=== PATIENT | male | born 1950 | race Caucasian/White ===

== ENCOUNTER 2016-09-16 19:55 | Emergency (ER) | payer MEDICARE, OTHER ==
--- NOTE | 2016-09-16 20:35 | EDM.PDOC ---
ED HISTORY OF PRESENT ILLNESS - General Chief Complaint: Respiratory Problem Stated Complaint: COUGH/CONGESTION Time Seen by Provider: 09/16/16 20:28 Source: Reports: Patient, RN notes reviewed History Limitations: Reports: No limitations - History of Present Illness INITIAL COMMENTS - FREE TEXT/NARRATIVE: 66-year-old gentleman presents emergency department today with complaint of cough chest congestion he states been ill for about a week initially started in his head and then migrated down into his chest he does have extensive coronary artery disease history but denies any specific chest pain or pressure he is producing yellow brownish sputum - Related Data Allergies/ADRs: Allergies Allergy/AdvReac Type Severity Reaction Status Date / Time morphine Allergy Headache Verified 09/22/14 12:19 Home Meds: Home Meds Carvedilol 25 mg PO BID 08/30/14 [History] Clopidogrel [Plavix] 75 mg PO DAILY 08/30/14 [History] Ezetimibe [Zetia] 10 mg PO DAILY 08/30/14 [History] Lisinopril 5 mg PO BID 08/30/14 [History] Pantoprazole [Protonix] 40 mg PO BEDTIME 08/30/14 [History] Spironolactone [Aldactone] 25 mg PO DAILY 08/30/14 [History] Warfarin [Coumadin] 5 mg PO ASDIRECTED 08/30/14 [History] atorvaSTATin [Lipitor] 80 mg PO BEDTIME 08/30/14 [History] Furosemide [Lasix] 20 mg PO DAILY PRN 09/22/14 [History] Nitroglycerin 0.4 mg SL ASDIRECTED 09/22/14 [History] Warfarin [Coumadin] 2.5 mg PO ASDIRECTED 09/22/14 [History] Past Medical History Cardiovascular History: Reports: Angina, Automatic implantable cardioverter defibrillators, Bypass, CAD, Cardiomyopathy, High cholesterol, Hypertension, [place] , Pacemaker, Stents Respiratory History: Reports: Intubation, previous Gastrointestinal History: Reports: GERD Musculoskeletal History: Reports: Fracture Neurological History: Reports: CVA, TIA Endocrine/Metabolic History: Reports: Obesity/BMI 30+ - Infectious Disease History Infectious Disease History: Reports: C-difficile, Measles, Mumps - Past Surgical History Cardiovascular Surgical History: Reports: AICD, Carotid stents, Coronary artery bypass, Coronary artery stent, Pacer, Percutaneous transluminal angioplasty GI Surgical History: Reports: Colonoscopy, EGD Social & Family History - Tobacco Use Smoking Status *Q: Never Smoker Second Hand Smoke Exposure: No - Caffeine Use Caffeine Use: Reports: Soda - Alcohol Use Days Per Week of Alcohol Use: 7 Number of Drinks Per Day: 2 Total Drinks Per Week: 14 - Recreational Drug Use Recreational Drug Use: No ED ROS GENERAL - Review of Systems Review Of Systems: See Below Constitutional: Reports: fever (Feverish at home) HEENT: Reports: No symptoms Respiratory: Reports: Shortness of Breath, Cough, Sputum. Denies: Wheezing Cardiovascular: Reports: Dyspnea on exertion. Denies: Chest pain GI/Abdominal: Reports: No symptoms : Reports: no symptoms Musculoskeletal: Reports: no symptoms Skin: Reports: no symptoms Neurological: Reports: No Symptoms ED EXAM, GENERAL - Physical Exam Exam: See Below Free Text/Narrative:: General: Male, not in any distress, alert and oriented x3 HEENT: head is atraumatic normocephalic, eyes pupils equal round reactive to light, sclera clear no conjunctivitis appreciated. Ears tympanic membranes clear and colon landmarks and light reflex are present bilaterally canals are clear. Nose no septal deviation, nares are clear, no blood present. Mouth mucosa is moist and pink no erythema or exudate noted in soft palate, tongue is midline uvula is midline, dentition is intact. Neck: Supple no thyromegaly no tracheal deviation. Nodes: Cervical nodes subclavicular nodes nontender no palpable lymphadenopathy noted. Lungs: clear to auscultation bilaterally with symmetrical respirations, no adventitious noise appreciated. CV: Regular rate and rhythm S1 and S2 appreciated no murmurs rubs or gallops noted. Abdomen: Soft, nontender, no palpable masses or organomegaly appreciated, no distention no guarding bowel sounds are present, . Course - Vital Signs Last Recorded V/S: Last Vital Signs Temp 98.3 F 09/16/16 20:08 Pulse 89 09/16/16 20:08 Resp 15 09/16/16 20:08 BP 143/97 H 09/16/16 20:08 Pulse Ox 96 09/16/16 20:08 - Orders/Labs/Meds Orders: Active Orders 24 hr Category Date Time Status Chest 2V [CR] Urgent Exams 09/16/16 20:31 Taken Labs: Laboratory Tests 09/16/16 09/16/16 09/16/16 Range/Units 20:44 20:44 20:44 WBC 7.4 (4.5-11.0) K/uL RBC 4.88 (4.30-5.90) M/uL Hgb 15.4 H (12.0-15.0) g/dL Hct 45.2 (40.0-54.0) % MCV 93 (80-98) fL MCH 32 H (27-31) pg MCHC 34 (32-36) % Plt Count 108 L (150-400) K/uL Neut % (Auto) 64 (36-66) % Lymph % (Auto) 18 L (24-44) % [place] % (Auto) 14 H (2-6) % Eos % (Auto) 3 (2-4) % Baso % (Auto) 1 (0-1) % PT 21.6 H (9.5-12.0) sec INR 1.99 H (0.80-1.20) Sodium 138 L (140-148) mmol/L Potassium 4.4 (3.6-5.2) mmol/L Chloride 104 (100-108) mmol/L Carbon Dioxide 30 (21-32) mmol/L Anion Gap 8.4 (5.0-14.0) mmol/L BUN 21 H (7-18) mg/dL Creatinine 1.2 (0.8-1.3) mg/dL Est Cr Clr Drug Dosing 63.62 mL/min Estimated GFR (MDRD) > 60 (>60) Glucose 120 H (74-106) mg/dL Calcium 8.3 L (8.5-10.1) mg/dL Total Bilirubin 0.8 (0.2-1.0) mg/dL AST 20 (15-37) U/L ALT 25 (12-78) U/L Alkaline Phosphatase 106 (46-116) U/L Troponin I < 0.017 (0.000-0.056) ng/mL Total Protein 7.7 (6.4-8.2) g/dL Albumin 3.8 (3.4-5.0) g/dL Globulin 3.9 H (2.3-3.5) g/dL Albumin/Globulin Ratio 1.0 L (1.2-2.2) Departure - Departure Time of Disposition: 21:54 Disposition: Home, Self-Care 01 Condition: good Clinical Impression: Bronchitis Forms: ED Department Discharge Additional Instructions: Take full course of antibiotics, use the Tessalon Perles as needed help suppress the cough Please followup with your primary care provider in 3-5 days if not better, please call return to the emergency department with worsening of symptoms. - My Orders Last 24 Hours: My Active Orders 09/16/16 20:31 Chest 2V [CR] Urgent - Assessment/Plan Last 24 Hours: My Active Orders 09/16/16 20:31 Chest 2V [CR] Urgent Plan: Assessment Acuity = acute Site and laterality = bronchitis complicated patient with known coronary artery disease as well as history of CVA on chronic anticoagulation Etiology = suspicious for bacterial cause Manifestations = none Location of injury = home Lab values = CBC unremarkable INR therapeutic 1.99 sodium low at 138 consistent hyponatremia, chest x-ray I did review films myself I cannot appreciate any acute process, the official read from radiology is pending Plan Given his history elected to treat empirically with azithromycin five-day course and Tessalon Perles to help suppress the cough him followup with his primary care in 3-5 days if no improvement. Patient was in agreement with the plan all questions were answered, they were instructed to return to the emergency department or call for worsening symptoms. This note was dictated using [employer] voice recognition software please call with any questions.
[2016-09-16 21:56] VITALS: BP 140/98
--- NOTE | 2016-09-17 08:59 | CR ---
Two-view chest Comparison: August 2014. There is a cardiac pacemaker on the left with 2 intact leads. The heart and vascular structures are within normal limits. There are no infiltrates or effusions. Impression: 1. Stable exam. No acute findings.
== END 2016-09-16 22:09 | disposition home or self-care (01) ==
LOC: JP.ED 19:55
DX: J40 Bronchitis, not specified as acute or chronic (principal); I20.9 Angina pectoris, unspecified; I25.10 Atherosclerotic heart disease of native coronary artery without angina pectoris; I25.2 Old myocardial infarction; I10 Essential (primary) hypertension; E78.00 Pure hypercholesterolemia, unspecified; K21.9 Gastro-esophageal reflux disease without esophagitis; E66.9 Obesity, unspecified; Z68.33 Body mass index [BMI] 33.0-33.9, adult; Z86.73 Personal history of transient ischemic attack (TIA), and cerebral infarction without residual deficits; Z95.810 Presence of automatic (implantable) cardiac defibrillator; Z95.1 Presence of aortocoronary bypass graft; Z95.5 Presence of coronary angioplasty implant and graft; Z79.01 Long term (current) use of anticoagulants; Z79.02 Long term (current) use of antithrombotics/antiplatelets; Z79.899 Other long term (current) drug therapy; Z88.5 Allergy status to narcotic agent
CPT/HCPCS: 36415; 71020; 71020-26; 80053; 84484; 85025; 85610; 87804; 99283; 99284

== ENCOUNTER 2016-12-19 08:04 | Emergency (ER) | payer MEDICARE, OTHER ==
--- NOTE | 2016-12-19 09:08 | EDM.PDOC ---
ED HPI GENERAL MEDICAL PROBLEM - General Chief Complaint: Cardiovascular Problem Stated Complaint: DIFFICULT TIME BREATHING Time Seen by Provider: 12/19/16 09:02 Source of Information: Reports: Patient, Family, Old Records, RN Notes Reviewed History Limitations: Reports: No Limitations - History of Present Illness INITIAL COMMENTS - FREE TEXT/NARRATIVE: 66-year-old gentleman presents emergency department day complaint of shortness of breath, he states over the last couple days increasing more short of breath last night was particularly worse he noticed it more when he laid down it was easier for him to sit in the chair he does have a known history of coronary artery disease does have when necessary Lasix of which she used this morning at 6 AM. At this time he feels significantly better - Related Data Allergies Allergy/AdvReac Type Severity Reaction Status Date / Time morphine Allergy Headache Verified 09/22/14 12:19 Home Meds: Home Meds Carvedilol 25 mg PO BID 08/30/14 [History] Clopidogrel [Plavix] 75 mg PO DAILY 08/30/14 [History] Ezetimibe [Zetia] 10 mg PO DAILY 08/30/14 [History] Lisinopril 5 mg PO BID 08/30/14 [History] Pantoprazole [Protonix] 40 mg PO BEDTIME 08/30/14 [History] Spironolactone [Aldactone] 25 mg PO DAILY 08/30/14 [History] Warfarin [Coumadin] 5 mg PO ASDIRECTED 08/30/14 [History] atorvaSTATin [Lipitor] 80 mg PO BEDTIME 08/30/14 [History] Furosemide [Lasix] 20 mg PO DAILY PRN 09/22/14 [History] Nitroglycerin 0.4 mg SL ASDIRECTED 09/22/14 [History] Warfarin [Coumadin] 2.5 mg PO ASDIRECTED 09/22/14 [History] Past Medical History Cardiovascular History: Reports: Angina, Automatic Implantable Cardioverter Defibrillators, Bypass, CAD, Cardiomyopathy, High Cholesterol, Hypertension, [place] , Pacemaker, Stents Respiratory History: Reports: Intubation, Previous Gastrointestinal History: Reports: GERD Musculoskeletal History: Reports: Fracture Other Musculoskeletal History: shoulder Neurological History: Reports: CVA, TIA Endocrine/Metabolic History: Reports: Obesity/BMI 30+ Hematologic History: Reports: Blood Transfusion(s) - Infectious Disease History Infectious Disease History: Reports: C-Difficile, Measles, Mumps - Past Surgical History Cardiovascular Surgical History: Reports: AICD, Carotid Stents, Coronary Artery Bypass, Coronary Artery Stent, Pacer, Percutaneous Transluminal Angioplasty GI Surgical History: Reports: Colonoscopy, EGD Neurological Surgical History: Reports: Lumbar Spine Social & Family History - Tobacco Use Smoking Status *Q: Never Smoker Second Hand Smoke Exposure: No - Caffeine Use Caffeine Use: Reports: Soda - Alcohol Use Days Per Week of Alcohol Use: 7 Number of Drinks Per Day: 2 Total Drinks Per Week: 14 - Recreational Drug Use Recreational Drug Use: No ED ROS GENERAL - Review of Systems Review Of Systems: See Below Constitutional: Reports: No Symptoms HEENT: Reports: No Symptoms Respiratory: Reports: Shortness of Breath. Denies: Wheezing, Cough, Sputum, Hemoptysis Cardiovascular: Denies: Chest Pain GI/Abdominal: Reports: No Symptoms : Reports: No Symptoms ED EXAM, GENERAL - Physical Exam Exam: See Below Exam Limited By: No Limitations General Appearance: Alert, WD/WN, No Apparent Distress Respiratory/Chest: No Respiratory Distress, No Accessory Muscle Use, Crackles ( In the bases bilaterally) Cardiovascular: Regular Rate, Rhythm, No Murmur GI/Abdominal: Soft, Non-Tender Course - Vital Signs Last Recorded V/S: Last Vital Signs Temp 95.6 F 12/19/16 08:26 Pulse 66 12/19/16 08:26 Resp 18 12/19/16 08:26 BP 116/79 12/19/16 08:26 Pulse Ox 96 12/19/16 08:26 - Orders/Labs/Meds Labs: Laboratory Tests 12/19/16 12/19/16 Range/Units 09:11 09:11 WBC 5.9 (4.5-11.0) K/uL RBC 4.78 (4.30-5.90) M/uL Hgb 14.9 (12.0-15.0) g/dL Hct 43.4 (40.0-54.0) % MCV 91 (80-98) fL MCH 31 (27-31) pg MCHC 34 (32-36) % Plt Count 95 L (150-400) K/uL Neut % (Auto) 58 (36-66) % Lymph % (Auto) 29 (24-44) % [place] % (Auto) 11 H (2-6) % Eos % (Auto) 1 L (2-4) % Baso % (Auto) 0 (0-1) % Sodium 138 L (140-148) mmol/L Potassium 4.6 (3.6-5.2) mmol/L Chloride 102 (100-108) mmol/L Carbon Dioxide 31 (21-32) mmol/L Anion Gap 9.6 (5.0-14.0) mmol/L BUN 25 H (7-18) mg/dL Creatinine 1.2 (0.8-1.3) mg/dL Est Cr Clr Drug Dosing 63.62 mL/min Estimated GFR (MDRD) > 60 (>60) Glucose 116 H (74-106) mg/dL Calcium 8.6 (8.5-10.1) mg/dL [id number] Pept 2850 H (5-125) pg/mL Departure - Departure Time of Disposition: 09:58 Disposition: Home, Self-Care 01 Condition: Good Clinical Impression: CHF (congestive heart failure) Qualifiers: Congestive heart failure type: unspecified congestive heart failure type Congestive heart failure chronicity: acute on chronic Qualified Code(s): I50.9 - Heart failure, unspecified Forms: ED Department Discharge Additional Instructions: Continue taking your Lasix 20 mg 2 times a day until you're down your baseline by about 6 pounds, then continue taking Lasix 20 mg once a day follow-up with your primary care in 5-7 days for reevaluation at which time I recommend rechecking your electrolytes, call return to the emergency department worsening of symptoms - Assessment/Plan Plan: Assessment Acuity = acute Site and laterality = exacerbation of congestive heart failure complicated patient with known history of coronary artery disease, hypertension and dyslipidemia Etiology = probably related to salt intake and fluid balance Manifestations = dyspnea improved Location of injury = Home Lab values = sodium low at 138 consistent hyponatremia BNP elevated at 2850 consistent with congestive heart failure pattern Plan I did review lab work with him plan is to continue with daily weights he admits that he is up 6 pounds and has eaten a couple ham sandwiches as of late. He is going to do Lasix 20 mg by mouth twice a day until he gets back to his baseline weight and then continue on Lasix 20 mg once a day until follow-up with his primary care in 5-7 days for review of medications and recheck his electrolytes Patient was in agreement with the plan all questions were answered, they were instructed to return to the emergency department or call for worsening symptoms. This note was dictated using [employer] voice recognition software please call with any questions.
[2016-12-19 09:20] VITALS: BP 116/79
== END 2016-12-19 10:06 | disposition home or self-care (01) ==
LOC: JP.ED 08:04
DX: I11.0 Hypertensive heart disease with heart failure (principal); I50.9 Heart failure, unspecified; I25.2 Old myocardial infarction; E78.00 Pure hypercholesterolemia, unspecified; K21.9 Gastro-esophageal reflux disease without esophagitis; I25.119 Atherosclerotic heart disease of native coronary artery with unspecified angina pectoris; E66.9 Obesity, unspecified; Z95.5 Presence of coronary angioplasty implant and graft; Z95.1 Presence of aortocoronary bypass graft; Z95.0 Presence of cardiac pacemaker; Z86.73 Personal history of transient ischemic attack (TIA), and cerebral infarction without residual deficits; Z98.890 Other specified postprocedural states; Z79.01 Long term (current) use of anticoagulants; Z79.899 Other long term (current) drug therapy; Z88.5 Allergy status to narcotic agent
CPT/HCPCS: 36415; 80048; 83880; 85025; 99284; 99285

== ENCOUNTER 2020-11-19 06:20 | Day surgery (SDC) | payer MEDICARE, OTHER ==
[2020-11-19] MEDS ORDERED: Midazolam 1 MG/ML 2 ML SDV ONE (06:37)
[2020-11-19] MEDS ORDERED: fentaNYL 100 MCG/2 ML SDV ONE (06:37)
[2020-11-19] MEDS ORDERED: Propofol 200 MG/20 ML SDV ONE (06:37)
[2020-11-19] MEDS ORDERED: Sodium Chloride 0.9% 1,000 ML IV SCH (07:00)
[2020-11-19 10:01] VITALS: BP 108/59; PULSE 95
--- NOTE | 2020-11-19 12:56 | OR ---
DATE OF PROCEDURE: 11/19/2020 SURGEON: Modesto Brooke MD PROCEDURE: Esophagogastroduodenoscopy. FINDINGS: 1. Plaque-like area approximately 1 cm in the first part of duodenum (biopsied using cold biopsy forceps). 2. Benign-appearing polyps in gastric body (biopsied using cold biopsy forceps). 3. 5.8 cm hiatal hernia. 4. Irregular Z-line concerning for reflux disease at gastroesophageal junction (biopsied in all 4 quadrants). COMPLICATIONS: None. MANAGER MATERIALS MANAGEMENT: None. PREOPERATIVE DIAGNOSES: 1. Epigastric pain. 2. Probable history of gastroesophageal reflux disease. POSTOPERATIVE DIAGNOSES: 1. Epigastric pain. 2. Probable history of gastroesophageal reflux disease. RISKS: Risks, benefits, alternatives, and limitations including but not limited to infection, bleeding, perforation, and false positives and false negatives were explained to the patient and they wished to proceed. PROCEDURE IN DETAIL: The patient was placed in left lateral decubitus position. The EGD scope was introduced and advanced atraumatically into the second part of the duodenum. Within the first part of the duodenum, there was a small plaque-like area. This was biopsied multiple times using cold biopsy forceps. This was not active bleeding. No evidence of ulceration in the area. Scope was brought back into the stomach, and the patient had a few small benign-appearing polyps. This was biopsied using cold biopsy forceps. No other abnormalities were noted. At the GE junction, the patient was noted to have a hiatal hernia. This was measured to the size above. The irregularity of the GE junction was also noted. This was biopsied using cold biopsy forceps in all 4 quadrants multiple times. The air was removed from the stomach. The remainder of the esophagus was inspected without abnormality. The patient tolerated the procedure well. Of note, we will have discussion with patient postoperatively about hiatal hernia repair and Kasia fundoplication. Modesto Brooke MD /[id number]
== END 2020-11-19 10:04 | disposition home or self-care (01) ==
LOC: JP.SDS 06:20
PROVIDERS: ATTEND Surgery
DX: K22.710 Barrett's esophagus with low grade dysplasia (principal); K44.9 Diaphragmatic hernia without obstruction or gangrene; K22.8 Other specified diseases of esophagus; K31.7 Polyp of stomach and duodenum; I25.10 Atherosclerotic heart disease of native coronary artery without angina pectoris; K21.9 Gastro-esophageal reflux disease without esophagitis; Z88.5 Allergy status to narcotic agent
CPT/HCPCS: 43239; 88305; J2250; J2704; J3010; J7030

== ENCOUNTER 2021-01-15 07:22 | Day surgery (SDC) | payer MEDICARE ==
[2021-01-15] MEDS ORDERED: Midazolam 1 MG/ML 2 ML SDV ONE (07:26)
[2021-01-15] MEDS ORDERED: Propofol 200 MG/20 ML SDV ONE (07:26)
[2021-01-15] MEDS ORDERED: fentaNYL 100 MCG/2 ML SDV ONE (07:26)
[2021-01-15] MEDS ORDERED: Sodium Chloride 0.9% 1,000 ML IV SCH (08:30)
[2021-01-15 10:15] VITALS: BP 106/59; PULSE 56
--- NOTE | 2021-01-16 07:32 | OR ---
DATE OF PROCEDURE: 01/15/2021 SURGEON: Modesto Brooke MD PROCEDURE: Esophagogastroduodenoscopy. PREOPERATIVE DIAGNOSIS: Chinchilla esophagus with low-grade dysplasia requiring repeat biopsies of the Chinchilla's area for malignancy evaluation purposes. POSTOPERATIVE DIAGNOSIS: Chinchilla esophagus with low-grade dysplasia requiring repeat biopsies of the Chinchilla's area for malignancy evaluation purposes. RISKS: Risks, benefits, alternatives, and limitations including, but not limited to infection, bleeding, perforation, false positives and false negatives were explained to the patient and he wished to proceed. PROCEDURE IN DETAIL: The patient was placed in left lateral decubitus position. The EGD scope was introduced and advanced atraumatically to the second part of the duodenum. At the GE junction, the patient did have the Chinchilla esophagus which was salmon-type area of tissue extending from the GE junction approximately 1 cm in distance. This was identified and rebiopsied within 5 mm increments. This was also biopsied around the remainder of the GE junction, approximately 12 pieces were taken. The remainder of the esophagus was inspected without abnormality. The patient tolerated the procedure well. Modesto Brooke MD /[id number]
== END 2021-01-15 09:55 | disposition home or self-care (01) ==
LOC: JP.SDS 07:22
PROVIDERS: ATTEND Surgery
DX: K21.9 Gastro-esophageal reflux disease without esophagitis (principal); K22.710 Barrett's esophagus with low grade dysplasia; K31.89 Other diseases of stomach and duodenum; I25.10 Atherosclerotic heart disease of native coronary artery without angina pectoris; I25.2 Old myocardial infarction; I50.9 Heart failure, unspecified; Z88.5 Allergy status to narcotic agent
CPT/HCPCS: 43239; J2250; J2704; J3010; J7030

== ENCOUNTER 2021-09-10 07:45 | Emergency (ER) | payer MEDICARE ==
[2021-09-10] MEDS ORDERED: Aspirin 81 MG Tab.Chew PO ONE (08:00)
[2021-09-10] MEDS ORDERED: Morphine 4 MG/ML Syringe IVPUSH PRN (08:00)
[2021-09-10] MEDS ORDERED: Nitroglycerin 0.4 MG Tab.SL SL PRN (08:00)
[2021-09-10] MEDS ORDERED: Sodium Chloride 0.9% 10 ML Syringe FLUSH PRN (08:00)
[2021-09-10 08:44] LABS: TROPONIN I HIGH SENSITIVITY 17.6 pg/mL (<=60.3)
[2021-09-10 11:21] VITALS: BP 125/81; PULSE 59
== END 2021-09-10 12:09 | disposition home or self-care (01) ==
LOC: JP.ED 07:45
DX: R07.89 Other chest pain (principal); I25.119 Atherosclerotic heart disease of native coronary artery with unspecified angina pectoris; E78.00 Pure hypercholesterolemia, unspecified; I10 Essential (primary) hypertension; I25.2 Old myocardial infarction; E66.9 Obesity, unspecified; Z68.33 Body mass index [BMI] 33.0-33.9, adult; Z86.73 Personal history of transient ischemic attack (TIA), and cerebral infarction without residual deficits; Z95.0 Presence of cardiac pacemaker; Z88.5 Allergy status to narcotic agent; Z79.02 Long term (current) use of antithrombotics/antiplatelets; Z79.899 Other long term (current) drug therapy; Z79.01 Long term (current) use of anticoagulants
CPT/HCPCS: 36415; 71045; 71045-26; 80053; 84484; 85025; 93005; 93010; 99283; 99285-25; A9270-GY

== ENCOUNTER 2021-09-27 17:12 | Emergency (ER) | payer MEDICARE ==
[2021-09-27] MEDS ORDERED: Sodium Chloride 0.9% 10 ML Syringe FLUSH PRN (17:14)
[2021-09-27 17:56] LABS: TROPONIN I HIGH SENSITIVITY 15.2 pg/mL (<=60.3)
[2021-09-27 19:48] VITALS: BP 122/83; PULSE 59
== END 2021-09-27 20:09 | disposition home or self-care (01) ==
LOC: JP.ED 17:12
DX: I20.0 Unstable angina (principal); I11.9 Hypertensive heart disease without heart failure; E78.00 Pure hypercholesterolemia, unspecified; I25.2 Old myocardial infarction; E66.9 Obesity, unspecified; Z68.30 Body mass index [BMI] 30.0-30.9, adult; Z86.73 Personal history of transient ischemic attack (TIA), and cerebral infarction without residual deficits; Z88.1 Allergy status to other antibiotic agents; Z88.5 Allergy status to narcotic agent; Z79.02 Long term (current) use of antithrombotics/antiplatelets; Z79.01 Long term (current) use of anticoagulants; Z79.899 Other long term (current) drug therapy; Z95.810 Presence of automatic (implantable) cardiac defibrillator; Z20.822 Contact with and (suspected) exposure to COVID-19
CPT/HCPCS: 36415; 80048; 83735; 83880; 84484; 85025; 93005; 99285-25; U0002